=== PATIENT | male | born 1975 | race Caucasian/White ===

== ENCOUNTER 2020-02-03 17:47 | Emergency (ER) | payer BC ==
--- NOTE | 2020-02-03 17:57 | EDM.PDOC ---
ED HPI GENERAL MEDICAL PROBLEM - General Chief Complaint: Flank Pain Stated Complaint: KIDNEY STONES Time Seen by Provider: 02/03/20 17:48 Source of Information: Reports: Patient History Limitations: Reports: No Limitations - History of Present Illness INITIAL COMMENTS - FREE TEXT/NARRATIVE: HISTORY AND PHYSICAL: History of present illness: Patient is a 44-year-old male who presents to the emergency room with complaints of left abdominal and flank pain. He started to develop left sided abdominal pain last evening which now is shooting to his left flank. Consistent nausea with 3 episodes of vomiting today. He is concerned he has a kidney stone, although has no previous history. Continues to void routinely although states "I am not peeing nearly as much as I have been drinking". Patient denies any fever, chills, headache, change in vision, syncope or near syncope. Denies any chest pain, neck stiffness/pain, shortness of breath or cough. Denies any diarrhea, constipation or dysuria. No testicular pain, swelling or redness. Has not noted any blood in urine or stool. Patient has been eating and drinking appropriately. Review of systems: As per history of present illness and below otherwise all systems reviewed and negative. Past medical history: As per history of present illness and as reviewed below otherwise noncontributory. Surgical history: As per history of present illness and as reviewed below otherwise noncontributory. Social history: See social history for further information Family history: As per history of present illness and as reviewed below otherwise noncontributory. Physical exam: General: Well-developed and well-nourished 44-year-old male. Alert and oriented. Nontoxic-appearing and in no acute distress. HEENT: Atraumatic, normocephalic, pupils equal and reactive bilaterally, negative for conjunctival pallor or scleral icterus, mucous membranes moist, trachea midline. No drooling or trismus noted. No meningeal signs. No hot potato voice noted. Lungs: Clear to auscultation, breath sounds equal bilaterally. Heart: S1S2, regular rate and rhythm without overt murmur Abdomen: Soft, obese, semi firm, nontender palpation. Small umbilical hernia noted; easily reducible. Negative for masses. Left sided costovertebral tenderness. Skin: Intact, warm, dry. No lesions or rashes noted. Extremities: Atraumatic, moves all extremities per self without difficulty or deficits, negative for cords or calf pain. Neurovascular unremarkable. Neuro: Awake, alert, oriented. Cranial nerves II through XII unremarkable. Cerebellum unremarkable. Motor and sensory unremarkable throughout. Exam nonfocal. Notes: CT shows a 2 mm stone in the left proximal ureter. Dr. Melany Corado, radiologist , called to discuss findings. She is concerned as there is extensive lymphadenopathy which is suggestive for lymphoma. I did discuss these findings with the patient. He states he has felt well other than the recent flank pain which brought him to the emergency room today. We will put him on the expedited follow-up, I would like him seen early next week to get further diagnostics and adequate referral for continued care. Prescription and supportive care measures were reviewed and discussed. Voices understanding and is agreeable to plan of care. Denies any further questions or concerns at this time. Diagnostics: CBC, CMP, UA, lipase Therapeutics: IV fluid, Zofran, Toradol Prescription: Flomax, Moro Impression: Kidney Stone, Left Lymphadenopathy Plan: 1. Increase your oral fluids. Strain your urine. 2. Tylenol and/or Ibuprofen as needed for pain. May take Moro for moderate to severe pain. This medication may cause drowsiness so do not take while driving or needing to be functioning outside the house. 3. Besides the kidney stone, the CT showed extensive lymphadenopathy (enlarged swollen lymph nodes) which is concerning for lymphoma. You will need to see a primary care doctor next week for further testing/diagnostics. 4. Follow up with urology next week as needed and as discussed. Return to the ED if needed. Definitive disposition and diagnosis as appropriate pending reevaluation and review of above. Duration: Day(s): Left flank Pain Score (Numeric/FACES): 5 - Related Data Allergies Allergy/AdvReac Type Severity Reaction Status Date / Time clarithromycin [From Biaxin] Allergy Other Verified 02/03/20 18:04 Home Meds: Home Meds Acetaminophen/HYDROcodone [Moro 325-5 MG] 1 tab PO Q4H PRN #15 tablet 02/03/20 [Rx] Tamsulosin HCl [Flomax] 0.4 mg PO DAILY #7 cap.er.24h 02/03/20 [Rx] Past Medical History - Past Health History Medical/Surgical History: Denies Medical/Surgical History Psychiatric History: Reports: Depression Other Psychiatric History: not on a medication - Infectious Disease History Infectious Disease History: Reports: Chicken Pox - Past Surgical History Other Musculoskeletal Surgeries/Procedures:: fracture left arm Social & Family History - Family History Family Medical History: Noncontributory - Caffeine Use Caffeine Use: Reports: None ED ROS GENERAL - Review of Systems Review Of Systems: Comprehensive ROS is negative, except as noted in HPI. ED EXAM, RENAL/ - Physical Exam Exam: See Below (See dictation) Course - Vital Signs Last Recorded V/S: Last Vital Signs Temp 97.9 F 02/03/20 17:55 Pulse 97 02/03/20 17:55 Resp 18 02/03/20 17:55 BP 152/94 H 02/03/20 17:55 Pulse Ox 96 02/03/20 17:55 - Orders/Labs/Meds Labs: Laboratory Tests 02/03/20 02/03/20 02/03/20 Range/Units 18:00 18:14 18:14 WBC 7.32 (4.0-11.0) K/uL RBC 4.91 (4.50-5.90) M/uL Hgb 13.8 (13.0-17.0) g/dL Hct 41.7 (38.0-50.0) % MCV 84.9 (80.0-98.0) fL MCH 28.1 (27.0-32.0) pg MCHC 33.1 (31.0-37.0) g/dL RDW Std Deviation 45.3 (28.0-62.0) fl RDW Coeff of Aníbal 15 (11.0-15.0) % Plt Count 218 (150-400) K/uL MPV 8.80 (7.40-12.00) fL Neut % (Auto) 66.5 (48.0-80.0) % Lymph % (Auto) 18.2 (16.0-40.0) % [place] % (Auto) 11.6 (0.0-15.0) % Eos % (Auto) 3.4 (0.0-7.0) % Baso % (Auto) 0.3 (0.0-1.5) % Neut # (Auto) 4.9 (1.4-5.7) K/uL Lymph # (Auto) 1.3 (0.6-2.4) K/uL [place] # (Auto) 0.9 H (0.0-0.8) K/uL Eos # (Auto) 0.3 (0.0-0.7) K/uL Baso # (Auto) 0.0 (0.0-0.1) K/uL Nucleated RBC % 0.0 /100WBC Nucleated RBCs # 0 K/uL Sodium 139 (136-148) mmol/L Potassium 3.8 (3.5-5.1) mmol/L Chloride 103 (98-107) mmol/L Carbon Dioxide 26.4 (21.0-32.0) mmol/L BUN 15 (7.0-18.0) mg/dL Creatinine 1.2 (0.8-1.3) mg/dL Est Cr Clr Drug Dosing 81.96 mL/min Estimated GFR (MDRD) > 60.0 ml/min Glucose 106 (74-106) mg/dL Calcium 8.2 L (8.5-10.1) mg/dL Total Bilirubin 0.3 (0.2-1.0) mg/dL AST 17 (15-37) IU/L ALT 30 (14-63) IU/L Alkaline Phosphatase 67 (46-116) U/L Total Protein 7.5 (6.4-8.2) g/dL Albumin 3.7 (3.4-5.0) g/dL Globulin 3.8 (2.6-4.0) g/dL Albumin/Globulin Ratio 1.0 (0.9-1.6) Lipase 105 (73-393) U/L Urine Color YELLOW Urine Appearance CLEAR Urine pH 5.5 (5.0-8.0) Ur Specific [place] >= 1.030 (1.001-1.035) Urine Protein NEGATIVE (NEGATIVE) mg/dL Urine Glucose (UA) NEGATIVE (NEGATIVE) mg/dL Urine Ketones NEGATIVE (NEGATIVE) mg/dL Urine Occult Blood MODERATE H (NEGATIVE) Urine Nitrite NEGATIVE (NEGATIVE) Urine Bilirubin NEGATIVE (NEGATIVE) Urine Urobilinogen 0.2 (<2.0) EU/dL Ur Leukocyte Esterase NEGATIVE (NEGATIVE) Urine RBC 2-6 (0-2/HPF) Urine WBC 1-2 (0-5/HPF) Ur Epithelial Cells RARE (NONE-FEW) Calcium Oxalate Crystal FEW (NEGATIVE) Amorphous Sediment RARE (NEGATIVE) Urine Bacteria RARE (NEGATIVE) Urine Mucus FEW (NONE-MOD) Meds: Medications Discontinued Medications Generic Name Dose Route Start Last Admin Trade Name Freq PRN Reason Stop Dose Admin Sodium Chloride 1,000 mls @ 999 mls/hr 02/03/20 18:02 02/03/20 18:17 Normal Saline IV 02/03/20 19:02 999 mls/hr STAT ONE Administration Ketorolac Tromethamine 30 mg 02/03/20 18:02 02/03/20 18:18 Toradol IVPUSH 02/03/20 18:03 30 mg ONETIME ONE Administration Morphine Sulfate 4 mg 02/03/20 18:02 Morphine IVPUSH 02/03/20 18:03 ONETIME ONE Ondansetron HCl 4 mg 02/03/20 18:02 02/03/20 18:17 Zofran IVPUSH 02/03/20 18:03 4 mg ONETIME ONE Administration Departure - Departure Time of Disposition: 19:43 Disposition: Home, Self-Care 01 Clinical Impression: Kidney stone on left side, Lymphadenopathy - Discharge Information Prescriptions: Acetaminophen/HYDROcodone [Moro 325-5 MG] 1 tab PO Q4H PRN #15 tablet PRN Reason: Pain Tamsulosin HCl [Flomax] 0.4 mg PO DAILY #7 cap.er.24h Instructions: Kidney Stones, [id number] Referrals: PCP,None [Primary Care Provider] - Forms: ED Department Discharge Additional Instructions: The following information is given to patients seen in the emergency department who are being discharged to home. This information is to outline your options for follow-up care. We provide all patients seen in our emergency department with a follow-up referral. The need for follow-up, as well as the timing and circumstances, are variable depending upon the specifics of your emergency department visit. If you don't have a primary care physician on staff, we will provide you with a referral. We always advise you to contact your personal physician following an emergency department visit to inform them of the circumstance of the visit and for follow-up with them and/or the need for any referrals to a consulting specialist. The emergency department will also refer you to a specialist when appropriate. This referral assures that you have the opportunity for follow-up care with a specialist. All of these measure are taken in an effort to provide you with optimal care, which includes your follow-up. Under all circumstances we always encourage you to contact your private physician who remains a resource for coordinating your care. When calling for follow-up care, please make the office aware that this follow-up is from your recent emergency room visit. If for any reason you are refused follow-up, please contact the [facility] at and asked to speak to the emergency department charge nurse. [facility] [address] [place] [id number] [facility] [address] [place] [address] 1. Increase your oral fluids. Strain your urine. 2. Tylenol and/or Ibuprofen as needed for pain. May take Moro for moderate to severe pain. This medication may cause drowsiness so do not take while driving or needing to be functioning outside the house. 3. Besides the kidney stone, the CT showed extensive lymphadenopathy (enlarged swollen lymph nodes) which is concerning for lymphoma. You will need to see a primary care doctor next week for further testing/diagnostics. 4. Follow up with urology next week as needed and as discussed, Dr Sandoval . Return to the ED if needed. Sepsis Event Note - Focused Exam Vital Signs: Vital Signs Temp Pulse Resp BP Pulse Ox 02/03/20 17:55 97.9 F 97 18 152/94 H 96 Date Exam was Performed: 02/03/20 Time Exam was Performed: 19:46
[2020-02-03] MEDS ORDERED: Ondansetron 4 MG/2 ML SDV IVPUSH ONE (18:02)
[2020-02-03] MEDS ORDERED: Sodium Chloride 0.9% 1,000 ML IV ONE (18:02)
[2020-02-03] MEDS ORDERED: Morphine 4 MG/ML Syringe IVPUSH ONE (18:02)
[2020-02-03] MEDS ORDERED: Ketorolac 30 MG/ML SDV IVPUSH ONE (18:02)
[2020-02-03 18:53] LABS: BLOOD UREA NITROGEN,BUN 15 mg/dL (7.0-18.0); CARBON DIOXIDE,CO2 26.4 mmol/L (21.0-32.0); CHLORIDE,CL 103 mmol/L (98-107); GLUCOSE RANDOM 106 mg/dL (74-106); LIPASE 105 U/L (73-393); POTASSIUM,K 3.8 mmol/L (3.5-5.1); SODIUM,NA 139 mmol/L (136-148)
--- NOTE | 2020-02-03 19:32 | CT ---
INDICATION: Left flank pain TECHNIQUE: CT abdomen and pelvis without contrast. COMPARISON: None FINDINGS: Lower chest: Calcified right hilar lymph nodes. Calcified granulomata right lower lobe. Liver: The liver measures 19.7 cm in length. Spleen: Unremarkable. Pancreas: Unremarkable. Gallbladder and bile ducts: Unremarkable. Adrenal glands: Unremarkable. Kidneys: Mild left hydronephrosis and proximal hydroureter secondary to a 2 mm stone in the proximal left ureter. No additional renal stone identified. GI tract: Colonic diverticulosis. Vascular structures: Unremarkable. Lymph nodes: 1.4 cm left inguinal lymph node. Left iliac chain lymph nodes measure up to 1.7 cm. Right iliac chain lymph nodes measure up to 1.9cm. 1.7 cm aortocaval lymph node. 1.6 cm left periaortic lymph node. 1.4 cm periportal lymph node. 1.4 cm portal caval lymph node. Shotty mesenteric fat lymph nodes. Miscellaneous: Small fat containing umbilical hernia. No free air or significant free fluid. Pelvic Organs: Unremarkable. Bones: Unremarkable for age. IMPRESSION: Mild left hydronephrosis and proximal hydroureter secondary to a 2 mm stone in the proximal left ureter. No additional renal stone identified. Extensive lymphadenopathy concerning for lymphoma. Mild hepatomegaly. Small fat containing umbilical hernia. Findings discussed with Dr. Jimenez at 7:30 p.m. on February 03, 2020. Please note that all CT scans at this facility use dose modulation, iterative reconstruction, and/or weight-based dosing when appropriate to reduce radiation dose to as low as reasonably achievable. Dictated by Melany Corado MD @ Feb 03 2020 7:30PM Signed by Dr. Melany Corado @ Feb 03 2020 7:30PM
[2020-02-03 19:56] VITALS: BP 128/90; PULSE 70
== END 2020-02-03 19:56 | disposition home or self-care (01) ==
LOC: MW.ED 17:47
DX: N13.2 Hydronephrosis with renal and ureteral calculous obstruction (principal); R59.1 Generalized enlarged lymph nodes; Z88.1 Allergy status to other antibiotic agents
CPT/HCPCS: 74176; 80053; 81001; 83690; 85025; 96361; 96374; 96375; 99284; J1885; J2405; J7030

== ENCOUNTER 2020-02-21 09:56 | Day surgery (SDC) | payer BC ==
[~2020-02-21 09:56] MED LIST: Dexamethasone 4 MG/ML 5 ML MDV ONE; Lactated Ringers 1,000 ML IV SCH; Lidocaine 2% 5 ML SDV ONE; Midazolam 1 MG/ML 2 ML SDV ONE; Ondansetron 4 MG/2 ML SDV ONE; Propofol 200 MG/20 ML SDV ONE; Sodium Chloride 0.9% 10 ML SDV IV PRN; Sodium Chloride 0.9% 10 ML Syringe FLUSH PRN; Sodium Chloride 0.9% 2.5 ML Syringe FLUSH PRN; ceFAZolin 2 GM in Premix Bag 1 BAG IV ONE; fentaNYL 100 MCG/2 ML SDV ONE
--- NOTE | 2020-02-21 11:29 | PCM.PREANE ---
Preanesthetic Assessment - Anesthesia/Transfusion/Family Hx Anesthesia History: Prior Anesthesia Without Reaction Family History of Anesthesia Reaction: No Transfusion History: No Prior Transfusion(s) Intubation History: Unknown - Review of Systems General: No Symptoms Pulmonary: No Symptoms Cardiovascular: No Symptoms Gastrointestinal: No Symptoms Neurological: No Symptoms Other: Reports: None - Physical Assessment Vital Signs: Last Vital Signs Temp 36.7 C 02/21/20 10:49 Pulse 67 02/21/20 10:49 Resp 16 02/21/20 10:49 BP 135/82 02/21/20 10:49 Pulse Ox 96 02/21/20 10:49 Height: 5 ft 10 in Weight: 106.141 kg ASA Class: 2 Mental Status: Alert & Oriented x3 Airway Class: Mallampati = 2 Dentition: Reports: Normal Dentition (small chip front upper incisor) Thyro-Mental Finger Breadths: 3 Mouth Opening Finger Breadths: 3 ROM/Head Extension: Full Lungs: Clear to Auscultation, Normal Respiratory Effort Cardiovascular: Regular Rate, Regular Rhythm - Allergies Allergies/Adverse Reactions: Allergies Allergy/AdvReac Type Severity Reaction Status Date / Time clarithromycin [From Biaxin] Allergy Hives Verified 02/21/20 10:48 - Blood Blood Available: No - Anesthesia Plan Pre-Op Medication Ordered: None - Acknowledgements Anesthesia Type Planned: General Anesthesia Pt an Appropriate Candidate for the Planned Anesthesia: Yes Alternatives and Risks of Anesthesia Discussed w Pt/Guardian: Yes Pt/Guardian Understands and Agrees with Anesthesia Plan: Yes PreAnesthesia Questionnaire - Past Health History Medical/Surgical History: Denies Medical/Surgical History HEENT History: Reports: Other (See Below) Other HEENT History: wears glasses/contacts Cardiovascular History: Reports: None Respiratory History: Reports: None Gastrointestinal History: Reports: Other (See Below) Other Gastrointestinal History: occasional heartburn Genitourinary History: Reports: Renal Calculus Other Genitourinary History: currently has kidney stone (left) Musculoskeletal History: Reports: Fracture Neurological History: Reports: None Psychiatric History: Reports: None Endocrine/Metabolic History: Reports: Obesity/BMI 30+ (BMI 33.6) Hematologic History: Reports: None Immunologic History: Reports: None Oncologic (Cancer) History: Reports: None Dermatologic History: Reports: None - Infectious Disease History Infectious Disease History: Reports: Chicken Pox - Past Surgical History Head Surgeries/Procedures: Reports: None HEENT Surgical History: Reports: Oral Surgery, Tonsillectomy Other HEENT Surgeries/Procedures: wisdom teeth extraction Cardiovascular Surgical History: Reports: None Respiratory Surgical History: Reports: None GI Surgical History: Reports: None Male Surgical History: Reports: None Endocrine Surgical History: Reports: None Neurological Surgical History: Reports: None Musculoskeletal Surgical History: Reports: Other (See Below) Other Musculoskeletal Surgeries/Procedures:: fracture left arm with repair Oncologic Surgical History: Reports: None Dermatological Surgical History: Reports: None - SUBSTANCE USE Smoking Status *Q: Former Smoker (quit 3 years ago) Tobacco Use Within Last Twelve Months: No - HOME MEDS Home Medications: Home Meds Acetaminophen/HYDROcodone [Kindred 325-5 MG] 1 tab PO Q4H PRN #15 tablet 02/03/20 [Rx] Tamsulosin HCl [Flomax] 0.4 mg PO DAILY #7 cap.er.24h 02/03/20 [Rx] Acetaminophen [Tylenol Extra Strength] 2 tab PO ASDIRECTED PRN 02/17/20 [History ] - CURRENT (IN HOUSE) MEDS Current Meds: Current Medications Lactated Ringer's (Ringers, Lactated) 1,000 mls @ 125 mls/hr IV ASDIRECTED KAREN Last Admin: 02/21/20 10:49 Dose: 125 mls/hr Sodium Chloride (Saline Flush) 10 ml FLUSH ASDIRECTED PRN PRN Reason: Keep Vein Open Sodium Chloride (Saline Flush) 2.5 ml FLUSH ASDIRECTED PRN PRN Reason: Keep Vein Open Sodium Chloride (Normal Saline) 10 ml IV ASDIRECTED PRN PRN Reason: IV Use Discontinued Medications Dexamethasone (Dexamethasone) Confirm Administered Dose 20 mg .ROUTE .STK-MED ONE Stop: 02/21/20 08:56 Fentanyl (Sublimaze) Confirm Administered Dose 100 mcg .ROUTE .STK-MED ONE Stop: 02/21/20 08:57 Cefazolin Sodium/Dextrose 2 gm (/ Premix) 50 mls @ 100 mls/hr IV ONETIME ONE Stop: 02/20/20 10:03 Lidocaine (Xylocaine-Mpf 2%) Confirm Administered Dose 5 ml .ROUTE .STK-MED ONE Stop: 02/21/20 08:56 Midazolam HCl (Versed 1 Mg/Ml) Confirm Administered Dose 2 mg .ROUTE .STK-MED ONE Stop: 02/21/20 08:57 Ondansetron HCl (Zofran) Confirm Administered Dose 4 mg .ROUTE .STK-MED ONE Stop: 02/21/20 08:56 Propofol (Diprivan 20 Ml) Confirm Administered Dose 200 mg .ROUTE .STK-MED ONE Stop: 02/21/20 08:57
[2020-02-21] MEDS ORDERED: HYDROmorphone 2 MG/ML Syringe ONE (11:54)
[2020-02-21] MEDS ORDERED: Sodium Chloride 0.9% 20 ML ONE (11:55)
[2020-02-21] MEDS ORDERED: Bupivacaine 0.5% 30 ML SDV ONE (13:27)
[2020-02-21] MEDS ORDERED: Lidocaine 1% 20 ML MDV ONE (13:27)
[2020-02-21] MEDS ORDERED: ceFAZolin/Dextrose,Iso-Osmotic 2 GM/50 ML Duplex Bag IV ONE (14:03)
[2020-02-21] MEDS ORDERED: Naloxone 0.4 MG/ML Syringe IVPUSH PRN (14:30)
[2020-02-21] MEDS ORDERED: Albuterol 0.083% 2.5 MG/3 ML Neb Soln NEB PRN (14:30)
[2020-02-21] MEDS ORDERED: fentaNYL 100 MCG/2 ML SDV IVPUSH PRN (14:30)
[2020-02-21] MEDS ORDERED: 50% Dextrose in Water 50 ML Syringe IVPUSH PRN (14:30)
[2020-02-21] MEDS ORDERED: EPINEPHrine 1:10,000 1 MG/10 ML Syringe IVPUSH PRN (14:30)
[2020-02-21] MEDS ORDERED: Atropine 0.1 MG/ML 10 ML Syringe IVPUSH PRN ×2 (14:30)
[2020-02-21] MEDS ORDERED: Octyl 2-Cyanoacrylate 1 Tube ONE (14:51)
--- NOTE | 2020-02-21 15:06 | PCM.OPNOTE ---
- General Post-Op/Procedure Note Date of Surgery/Procedure: 02/21/20 Operative Procedure(s): Left inguinal lymph node excisional biopsy Findings: 3.5 x 3 x 1 cm left inguinal lymph node Pre Op Diagnosis: Lymphadenopathy Post-Op Diagnosis: same Anesthesia Technique: General ET Tube Primary Surgeon: Ying Lowery Fluid Replacement, Intraop: 400 EBL in mLs: 5 Condition: Good
--- NOTE | 2020-02-21 15:35 | PCM.POSTAN ---
POST ANESTHESIA ASSESSMENT - VITAL SIGNS Vital Signs: Last Vital Signs Temp 36.5 C 02/21/20 15:02 Pulse 81 02/21/20 15:28 Resp 12 02/21/20 15:28 BP 120/77 02/21/20 15:28 Pulse Ox 92 L 02/21/20 15:28 - RESPIRATORY Respiratory Status: Respiratory Rate WNL - CARDIOVASCULAR CV Status: Pulse Rate WNL - GASTROINTESTINAL GI Status: No Symptoms - POST OP HYDRATION Hydration Status: Adequate & Stable
[2020-02-21 16:43] VITALS: BP 112/78; PULSE 72
--- NOTE | 2020-02-22 19:37 | OR ---
SURGEON: YING LOWERY MD DATE OF PROCEDURE: 02/21/2020 PREOPERATIVE DIAGNOSIS: Lymphadenopathy. POSTOPERATIVE DIAGNOSIS: Lymphadenopathy. PROCEDURE PERFORMED: Left inguinal lymph node excisional biopsy. PRIMARY SURGEON: Ying Lowery MD ANESTHESIA: General endotracheal anesthesia. FLUIDS: 400 mL of crystalloid. ESTIMATED BLOOD LOSS: 5 mL. FINDINGS: 3.5 x 3 x 1 cm superficial left inguinal lymph node. COMPLICATIONS: None. INDICATIONS: The patient is a 44-year-old male who was recently seen in the emergency room with nephrolithiasis. Incidentally, he was found to have a lymphadenopathy concerning for lymphoma. In order to determine what process is causing his lymphadenopathy, his oncologist recommended an inguinal lymph node excisional biopsy. The patient was seen in clinic, and I could easily palpate an enlarged lymph node along the left inguinal canal. The decision was made to proceed with this operation. I explained the procedure to the patient as well as the expected perioperative course and risks including bleeding, infection, damage to surrounding structures, or lymphatic leak. The patient verbalized understanding and wishes to proceed. PROCEDURE IN DETAIL: The patient was brought into the OR and placed on the OR table in supine position. A time-out was completed verifying the patient's name, age, date of , allergies, and procedure to be performed. General endotracheal anesthesia was induced. The left groin was prepped and draped in usual standard fashion. A sterile ultrasound probe was used to identify an enlarged lymph node, which was located superficially and in the left lateral groin. I anesthetized the area overlying this lymph node with 0.5% Marcaine plain. A 15 blade was used to make an incision on the skin. Cautery was used to dissect down into the level of subcutaneous fat. I bluntly dissected down to the lymph node. It was grasped with a clamp and gently elevated. Using Metzenbaum scissors, I dissected it free from all of its surrounding tissue. At the base of the lymph node, I identified the lymphatic channel. This was doubly clipped and ligated. Just next to this were the vascular structures. I doubly clipped and ligated them as well. The lymph node was then placed on the back table and measured. It measured 3.5 x 3 x 1 cm in size. It was sent to pathology fresh. The operative field was then irrigated with normal saline. Once this was dry, I closely inspected it for any evidence of bleeding or lymphatic leak. None was noted. I then closed the subcutaneous fat layer with interrupted 3-0 Vicryl sutures in layers. The skin was closed with running 4-0 Monocryl stitch. Dermabond and sterile dressings were applied. All counts were complete and correct at the end of the case. The patient tolerated the procedure well and was taken to PACU in stable condition. MONICA GALLOWAY /[id number]
== END 2020-02-21 16:25 | disposition home or self-care (01) ==
LOC: MW.SDS 09:56
PROVIDERS: ATTEND Surgery
DX: I89.8 Other specified noninfective disorders of lymphatic vessels and lymph nodes (principal); E66.9 Obesity, unspecified; N20.0 Calculus of kidney; Z87.891 Personal history of nicotine dependence; Z88.1 Allergy status to other antibiotic agents; Z68.33 Body mass index [BMI] 33.0-33.9, adult
CPT/HCPCS: 38531; A9270; J0690; J1100; J1170; J2001; J2250; J2405; J2704; J3010; J3490; J7120; 01610; 88307; 88312; 88313

== ENCOUNTER 2021-12-08 17:45 | Emergency (ER) | payer BC ==
[2021-12-08] MEDS: Sodium Chloride 0.9% 1,000 ML IV ONE (18:10)
[2021-12-08] MEDS: Sodium Chloride 0.9% 10 ML Syringe FLUSH PRN (18:11)
[2021-12-08] MEDS: Sodium Chloride 0.9% 2.5 ML Syringe FLUSH PRN (18:11)
[2021-12-08 18:30] LABS: BLOOD UREA NITROGEN,BUN 15 mg/dL (7.0-18.0); CARBON DIOXIDE,CO2 24.8 mmol/L (21.0-32.0); CHLORIDE,CL 102 mmol/L (98-107); GLUCOSE RANDOM 115 mg/dL (74-106); POTASSIUM,K 3.4 mmol/L (3.5-5.1); SODIUM,NA 141 mmol/L (136-148)
[2021-12-08 19:17] VITALS: BP 140/89; PULSE 76
== END 2021-12-08 19:22 | disposition home or self-care (01) ==
LOC: MW.ED 17:45
DX: R00.2 Palpitations (principal); E66.9 Obesity, unspecified; Z68.36 Body mass index [BMI] 36.0-36.9, adult; Z88.1 Allergy status to other antibiotic agents
CPT/HCPCS: 36415; 71046; 80053; 83735; 84484; 85025; 93005; 99285; J7030